=== PATIENT | male | born 1975 | race Caucasian/White ===

== ENCOUNTER 2023-06-29 17:55 | Emergency (ER) | payer MEDICAID, SELFPAY ==
--- NOTE | 2023-06-29 | ECG_ITS ---
Test Reason : DIZZINESS Blood Pressure : / mmHG Vent. Rate : 054 BPM Atrial Rate : 054 BPM P-R Int : 150 ms QRS Dur : 084 ms QT Int : 416 ms P-R-T Axes : 072 068 068 degrees QTc Int : 394 ms Sinus bradycardia RSR' or QR pattern in V1 suggests right ventricular conduction delay Nonspecific ST abnormality Abnormal ECG No previous ECGs available Referred By: Generic ED Physician Electronically Signed By:REJI TURK MD
--- NOTE | ~2023-06-29 | CT_ITS ---
EXAMINATION: CT HEAD WITHOUT CONTRAST CLINICAL INFORMATION: Fall, head strike COMPARISON: None available. TECHNIQUE: Contiguous axial imaging was performed from the skull base to vertex without intravenous administration of contrast. This CT examination was performed using dose optimization techniques as appropriate, variously including the following: *Automated exposure control *Adjustment of mA and/or kV according to patient size (this includes techniques or standardized protocols for targeted exams where dose is matched to indication/reason for exam; i.e. extremities or head) *Use of iterative reconstruction technique DLP: 752 mGy-cm FINDINGS: There is no evidence of acute intracranial hemorrhage or territorial infarction. No abnormal mass-effect or midline shift is seen. Emmanuel to white matter differentiation is well preserved. No extra-axial fluid collections are identified. There is chronic appearing irregular configuration of the lateral ventricles, which could reflect sequelae of dysgenesis of the corpus callosum. There is no abnormal attenuation within the brain parenchyma. The osseous structures and soft tissues are normal. The mastoid air cells and visualized portions of the paranasal sinuses are well-aerated. CT/CT head/brain wo IV con IMPRESSION: No acute intracranial pathology.
[2023-06-29 18:06] VITALS: BP 125/65; PULSE 59; RESP 18; TEMP 36.8; O2SAT 96
[2023-06-29 18:08] VITALS: BP 125/65; BP 132/79; PULSE 60; PULSE 64; RESP 16; TEMP 36.8; O2SAT 97; O2SAT 99; BMI 24.4
[2023-06-29 19:05] VITALS: BP 102/61; BP 108/58; PULSE 54; PULSE 60
[2023-06-29 19:06] VITALS: BP 103/66; PULSE 76
[2023-06-29 19:08] LABS: Basophils Percent Auto 0.7 % (0-2); Eosinophils Percent Auto 0.4 % (0-4); Hemoglobin 12.8 g/dl (14.0-18.0); Imm Gran Abs Auto 0.02 X10*3/uL (0.00-0.03); Imm Gran Pct Auto 0.4 % (0.0-0.4); Lymphocytes Absolute Auto 0.8 X10*3/uL (1.2-4.9); Lymphocytes Percent Auto 15.1 % (20-40); MANUAL DIFF FLAG SCAN; Mean Corpuscular HGB Conc 34.6 g/dl (31.0-36.0); Mean Corpuscular Hemoglobin 31.5 pg (27.0-33.0); Mean Corpuscular Volume 91.1 fL (80.0-98.0); Mean Platelet Volume 9.9 fL (9.4-12.4); Monocytes Absolute Auto 1.4 X10*3/uL (0.1-1.2); Monocytes Percent Auto 25.9 % (2-11); Neutrophils Absolute Auto 3.1 x10*3/uL (2.0-8.3); Neutrophils Percent Auto 57.5 % (45-73); Platelet Count 191 X10*3/uL (160-400); Red Blood Count 4.06 X10*6/uL (4.60-5.80); Red Cell Distribution Width 13.8 % (11.0-16.0); SCAN SMEAR FLAG 1; White Blood Count 5.4 X10*3/uL (4.8-10.8)
[2023-06-29 19:19] LABS: Alanine Aminotransferase 11 U/L (0-40); Albumin Level 4.3 g/dL (3.5-5.0); Alkaline Phosphatase 50 U/L (39-117); Anion Gap 12 (12-20); Aspartate Amino Transferase 16 U/L (5-37); Bilirubin Total 0.4 mg/dL (0.0-1.0); Blood Urea Nitrogen 10 mg/dL (9-16); Calcium 9.3 mg/dL (8.4-10.2); Carbon Dioxide 25 mmol/L (22-29); Chloride 105 mmol/L (96-108); Estimated Glomerular Filt Rate > 60; Glucose Random 99 mg/dL (60-115); Potassium 3.6 mmol/L (3.3-5.1); Sodium 138 mmol/L (135-145); Total Protein 7.4 g/dL (6.5-8.0)
[2023-06-29 19:25] LABS: SLIDE REVIEW VERIFIED
--- NOTE | 2023-06-29 19:37 | PC.NURSE ---
I assumed care of the pt at 1900. Pt resting quietly in bed with sitter at the bedside. Pt presents A&Ox4, GCS 15, with warm, dry skin. Pt denies pain and SI/HI. Pt has no complaints at this time.
--- NOTE | 2023-06-29 21:13 | ED.DIZZY ---
HPI - Dizziness General Chief Complaint: Dizziness Stated Complaint: JOSÉ SIERRA, HIT HEAD ON WALL,DIZZY, -LOC Time Seen by Provider: 06/29/23 21:06 Source: patient Mode of arrival: EMS Limitations: no limitations History of Present Illness HPI Narrative: 48-year-old male who presents emergency department from [facility] for evaluation of dizziness, headache and head injury. The patient told me that he had a nervous breakdown he has been at [facility] for approximately 2 weeks. He states that they have started him on some new medications and he believes that the medications are making him nauseated. Patient states that this morning at 03:00 hours he felt like he was going to vomit so he got up to go to the bathroom. States that he felt dizzy and lightheaded and got into the bathroom but fell striking his head on a wall. He denied any loss of consciousness. He states since the head injury he has had a headache. He states the headache is a constant, throbbing pain any does have pain in his right forehead where he struck his head. He states that the staff at [facility] were concerned about his head injury in his headache and they sent him to emergency department for evaluation. Patient denied fever but states he has been having chills with the past several days. He states he has a chronic cough secondary to smoking. Denied chest pain, shortness of breath, changes bowel movements, frequency, urgency or dysuria. Related Data Allergies Allergy/AdvReac Type Severity Reaction Status Date / Time Penicillins AdvReac Nausea Verified 06/29/23 18:14 Review of Systems Review of Systems: Yes all other systems are reviewed and are negative [facility] Past Medical History [facility] Narrative: Past medical history: Psychiatric illness, thyroid disease. Social history: Patient states that he is a smoker and he was drinking alcohol but has not had anything to smoker drink since being at [facility]. He does smoke marijuana. Social History Alcohol intake: never Smoked in Last 30 Days: No Use of substances other than those prescribed or required for medical reasons: No Advance Directives: No Advance Directives Information Provided: No Physical Exam Vital Signs: Vital Signs: Last Vital Signs Temp 98.7 F 06/29/23 23:42 Pulse 52 06/29/23 23:42 Resp 16 06/29/23 23:42 BP 112/57 L 06/29/23 23:42 Pulse Ox 96 06/29/23 23:42 O2 Del Method Room Air 06/29/23 23:42 BMI result Body Mass Index 24.4 Vital signs were normal. Exam: General: Awake, alert in no distress Head: Normocephalic, patient has a hematoma to the right forehead, this area is tender to palpation EENT: PERRL, Lids normal, sclera normal, conjunctiva normal, nose normal , ears normal, throat without erythema or exudates Neck: Supple, no adenopathy, no trachea midline or C-spine tenderness Lung: breath sounds symmetric, no wheezing, rales or rhonchi Chest: symmetric movement, nontender Heart: regular rate and rhythm, normal S1, S2 no murmurs or rubs Abdomen: soft, non-tender, nondistended, normal bowel sounds Back: no vertebral tenderness, no CVAT Extremities: no deformities, moves all extremities symmetrically Neuro: Awake, alert, oriented, normal speech, cranial nerves intact, moves all extremities symmetrically Psych: Pleasant, cooperative Medical Decision Making Medical Decision Making MDM Narrative: 48-year-old male with history of psychiatric illness and thyroid disease who states that he had a nervous breakdown is been at [facility] for 2 weeks, patient states he has been started on new medications and he believes these medications are causing nausea. Patient woke up at 03:00 hours is morning, had nausea and got up to go to the bathroom, states that he was dizzy and fell forward striking his head on the wall of the bathroom. He did sustain a head injury with a hematoma to his right forehead. He denied loss of consciousness. Since the head injury he has had headache and was referred to the emergency department for evaluation. Vital signs were normal. Patient does have a hematoma to his right forehead with tenderness palpation of this area. His exam is otherwise unremarkable. Following evaluation was ordered: CBC, CMP, troponin, EKG, CT scan of the brain without IV contrast 23:59 Patient's laboratory evaluation was unremarkable. EKG was unremarkable. CT scan of the patient's head revealed no fracture or bleed. Patient's your syncopal episodes most likely triggered by vasovagal event caused by his nausea patient Patient's headache is most likely secondary to his head injury may have had a concussion I did discuss this with him. Patient was given Tylenol 975 mg orally. Patient will be discharged back to [facility] for further management. Differential Diagnosis Differential Diagnoses: The differential diagnosis associated with the presentation includes Differential diagnosis includes was not limited to forehead contusion, skull fracture, intracranial bleed, anemia, electrolyte abnormality Admission/Observation Consideration of admission/observation: Escalation of care including admission/observation considered Lab Data MDM Lab Attestation statement: I reviewed the patient's lab results. My interpretation patient's laboratory evaluation as follows: CBC was normal. CMP was unremarkable. High sensitive troponin I was detectable at 4.0 but not elevated. 06/29/23 19:01 06/29/23 19:01 Labs: Lab Results 06/29/23 Range/Units 19:01 WBC 5.4 (4.8-10.8) X10*3/uL RBC 4.06 L (4.60-5.80) X10*6/uL Hgb 12.8 L (14.0-18.0) g/dl Hct 37.0 L (42.0-52.0) % MCV 91.1 (80.0-98.0) fL MCH 31.5 (27.0-33.0) pg MCHC 34.6 (31.0-36.0) g/dl RDW 13.8 (11.0-16.0) % Plt Count 191 (160-400) X10*3/uL MPV 9.9 (9.4-12.4) fL Immature Gran % (Auto) 0.4 (0.0-0.4) % Neut % (Auto) 57.5 (45-73) % Lymph % (Auto) 15.1 L (20-40) % Harlan % (Auto) 25.9 H (2-11) % Eos % (Auto) 0.4 (0-4) % Baso % (Auto) 0.7 (0-2) % Lymph # (Auto) 0.8 L (1.2-4.9) X10*3/uL Harlan # (Auto) 1.4 H (0.1-1.2) X10*3/uL Eos # (Auto) 0.0 (0.0-0.4) X10*3/uL Baso # (Auto) 0.0 (0.0-0.2) X10*3/uL Abs Immat Gran (auto) 0.02 (0.00-0.03) X10*3/uL Absolute Neuts (auto) 3.1 (2.0-8.3) x10*3/uL Absolute Nucleated RBC 0.000 (0.0-0.012) X10*3/uL Nucleated RBC % (auto) 0.0 (0.0-0.2) /100WBC Smear Tech's Comments VERIFIED Sodium 138 (135-145) mmol/L Potassium 3.6 (3.3-5.1) mmol/L Chloride 105 (96-108) mmol/L Carbon Dioxide 25 (22-29) mmol/L Anion Gap 12 (12-20) BUN 10 (9-16) mg/dL Creatinine 0.81 (0.5-1.4) mg/dL Estim Creat Clear Calc 131.0 Estimated GFR > 60 Random Glucose 99 (60-115) mg/dL Calcium 9.3 (8.4-10.2) mg/dL Total Bilirubin 0.4 (0.0-1.0) mg/dL AST 16 (5-37) U/L ALT 11 (0-40) U/L Alkaline Phosphatase 50 (39-117) U/L Troponin I High Sens 4.0 (<3.5-35.0) ng/L Total Protein 7.4 (6.5-8.0) g/dL Albumin 4.3 (3.5-5.0) g/dL Independent Interpretation I performed an independent interpretation of an: EKG Interpretation: My interpretation patient's 12 EKG done at 18:52 hours is as follows: Sinus bradycardia with a rate of 54, normal FL interval, QRS duration and QTC interval, no ST segment elevation, no ST segment depression, no T-wave abnormalities, no PACs, no PVCs except for the bradycardia, this is a normal EKG. Radiology Impression Discussion of test interpretation with radiology: I have reviewed the radiologist's reading. Radiologist Impression: CT head/brain wo IV con IMPRESSION: No acute intracranial pathology. Dictated By: Catarino Campos MD Discharge Plan Discharge Clinical Impression: Vasovagal near syncope, Nausea Closed head injury Qualifiers: Encounter type: initial encounter Qualified Code(s): S09.90XA - Unspecified injury of head, initial encounter Patient Disposition: Home, Self-Care Instructions: Near Syncope (ED) Additional Instructions: Your blood work was normal. Your EKG was unremarkable. The CT scan of your head without IV contrast revealed no skull fracture no bleeding in your brain. Your near syncope (almost faint) was most likely triggered by your nausea which stimulated your vagus causing lightheadedness and dizziness and almost fainting. You should discuss the nausea with your prescribing providers to see if they think it is related to her medications or to see if you need an antinausea medicine. You did receive Tylenol here in the emergency department for your pain Take Tylenol 500 mg pills, 2 pills every 6 hours as needed for headache. Follow-up with your doctor in 2 days. Please return to the emergency department if your symptoms get worse or if you develop any symptoms that are concerning to you.
[2023-06-29 23:42] VITALS: BP 112/57; PULSE 52; RESP 16; TEMP 37.1; O2SAT 96
[2023-06-30] MEDS: Acetaminophen 325 MG TABLET 975 MG PO (00:16)
--- NOTE | 2023-06-30 01:38 | PC.NURSE ---
Attempted to call report to bong mcnulty at [phone]. Left a message with request to call back. Pt waiting transport at this time.
--- NOTE | 2023-06-30 03:06 | PC.NURSE ---
[facility]
== END 2023-06-30 03:28 | disposition home or self-care (01) ==
PROVIDERS: Emergency Provider Emergency Medicine Emergency Medical Services
DX: R55 Syncope and collapse (principal); R11.0 Nausea; S09.90XA Unspecified injury of head, initial encounter; W18.39XA Other fall on same level, initial encounter; Y93.89 Activity, other specified; Y92.041 Bathroom in boarding-house as the place of occurrence of the external cause; Y99.9 Unspecified external cause status
CPT/HCPCS: 36415; 70450; 80053; 84484; 85025; 93005; 99284; 99285